=== PATIENT | female | born 1980 | race Caucasian/White ===

== ENCOUNTER 2017-03-10 17:07 | Inpatient (IN) | payer OTHER ==
[2017-03-10] MEDS ORDERED: LR 1,000 ML IV PRN (17:19)
[2017-03-10] MEDS ORDERED: AMPICILLIN SODIUM 2 GM in NS 100 ML IV ONE (17:19)
[2017-03-10] MEDS ORDERED: TERBUTALINE SULFATE 1 MG/ML VIAL IV PRN (17:19)
[2017-03-10] MEDS ORDERED: EPSOM SALT 454 GM TP PRN (17:19)
[2017-03-10] MEDS ORDERED: OXYTOCIN/RINGERS LACTATE 1,000 ML IV PRN (17:19)
[2017-03-10] MEDS ORDERED: OLIVE OIL 118 ML BTL MISC PRN (17:19)
--- NOTE | 2017-03-10 17:23 | OBPROG ---
OBG Labor Progress Note Assessment/Plan: Assessment: leisa q1=3 6/100/-1 cephalic soft mid coping well through the contrctions gbs positive will begin antibiotics cat 1 fhr tub epidural for pin relief when requested Plan:expectant management of labor GBS positive 03/10/17 17:21 Subjective: Doing well. Leisa since 219903/09/2017. denies leaking bleeding. States feling positive movement - SVE Dilation (cm): 6 Effacement (%): 100 Station: -1 - Physical Exam General Appearance: WD/WN, alert, no apparent distress Respiratory: chest non-tender, lungs clear, normal breath sounds Cardiac/Chest: regular rate, rhythm Abdomen: normal bowel sounds Extremities: normal range of motion, Pam's sign (negative homens sign bilaterally) DTR- Lower Extremities: Knee (R): 2+, Knee (L): 2+ (no clonus) Skin: normal color, warm/dry Neuro/Psych: no motor/sensory deficits, alert, normal mood/affect, oriented x 3 ICD10 Worksheet Patient Problems: Problems Problem Status Onset (spontaneous vaginal delivery) Acute
[2017-03-10 17:40] LABS: % IMMATURE GRANULYOCYTES 0.5 % (0.0-1.1); ABSOLUTE IMMATURE GRANULOCYTES 0.04 10^3/uL (0.00-0.10); ADD DIFF? NO; ADD MORPH? NO; ADD SCAN? NO; ATYPICAL LYMPHOCYTE FLAG 0 (0-99); FRAGMENT RBC FLAG 0 (0-99); HEMATOCRIT 35.8 % (38.0-47.0); HEMOGLOBIN 12.5 g/dL (12.6-16.3); LEFT SHIFT FLG 0 (0-99); LIPEMIA HEMOLYSIS FLAG 90 (0-99); MEAN CELL HEMOGLOBIN 32.4 pg (27.9-34.1); MEAN CELL HEMOGLOBIN CONCENTR. 34.9 g/dL (32.4-36.7); MEAN CELL VOLUME 92.7 fL (81.5-99.8); MEAN PLATELET VOLUME 12.5 fL (8.7-11.7); PLATELET CLUMPS FLAG 0 (0-99); PLATELET COUNT 106 10^3/uL (150-400); RED BLOOD CELL COUNT 3.86 10^6/uL (4.18-5.33); RED CELL DISTRIBUTION WIDTH 13.2 % (11.5-15.2)
--- NOTE | 2017-03-10 17:59 | GHP ---
[f rep st] HISTORY AND PHYSICAL DATE OF ADMISSION: 03/10/2017 HISTORY: The patient is a 36-year-old, 2, para 1, with an EDC of 2016. Gestational age 40 and 1/7th weeks. States regular contractions since 2200 on 03/09/2017. Denies leaking, denies bleeding. States feeling positive movement. The patient has been seeing [facility] routinely since 08/03/2016, at 8 and 4/7th weeks. MEDICAL HISTORY: Patient has a history of exercise-induced asthma. GYNECOLOGICAL HISTORY: OCP use for years. Colpo in 2011. Paps have been within normal limits since then. SURGICAL HISTORY: [place] teeth, tonsillectomy, and right arm fracture as a child 4 to 5 years old. SOCIAL HISTORY: Patient is . No drug history, no smoking history. ALLERGIES: Patient is allergic to nuts. No known drug allergies. MEDICATIONS: vitamins. Folic acid. OB HISTORY: In 02/2014, a male who weighed 7 pounds, 15 ounces at 39 and 4/7th weeks, 35 hours of labor, vaginal delivery with an epidural. Previous hemorrhage. FAMILY HISTORY: Noncontributory. PRESENT HISTORY: AMA, Rh negative. LABS: Patient is A-negative. Antibody negative. RPR is nonreactive. Rubella is immune. Hepatitis is negative. HIV is negative. Trio screen on 08/12/2013 was negative. Thyroid was 1.25 on 08/22/2016. 1-hour GTT was within normal limits. Pap, gonorrhea and chlamydia were within normal limits. On 09/28/2016 , AFP was negative. PLAN: 1. GBS positive. Antibiotics will be started. 2. Epidural for pain relief at patient request. 3. Expectant management of labor. 4. Consult Dr. Sameera Gibbs, as needed for plan of care. /[id number]/MODL MTDD
[2017-03-10] MEDS ORDERED: LIDOCAINE 1% 300 MG/30 ML SDV ONE (18:11)
[2017-03-10] MEDS ORDERED: AMMONIA AROMATIC 1 EACH AMP IH ONE (18:12)
[2017-03-10] MEDS ORDERED: OLIVE OIL 118 ML BTL ONE (18:12)
[2017-03-10] MEDS ORDERED: OXYTOCIN 10 UNIT/ML VIAL ONE (18:12)
[2017-03-10] MEDS ORDERED: MISOPROSTOL 200 MCG TAB ONE (18:13)
--- NOTE | 2017-03-10 18:50 | OBPROG ---
OBG Labor Progress Note Assessment/Plan: Assessment: leisa q2-3 8-9/100/-1 cephalic soft mid coping well through the contractions gbs positive will begin antibiotics fisrt dose at 1730 cat 1 fhr changing positions frequently to assist with pain relief Plan:expectant management of labor GBS positive 03/10/17 17:21 03/10/17 18:48 Subjective: l through the pain. Irregularly feeling pressure with the contractions. I feel like I need to have a bm. Objective: 03/10/17 17:30 Patient ABO/Rh A NEGATIVE 03/10/17 17:30 - SVE Dilation (cm): 8 Effacement (%): 100 Station: 0 Oxytocin Orders Assessment - Pre-Induction/Augmentation Assessment Gestational Age: 40 week(s) and 2 day(s) ICD10 Worksheet Patient Problems: Problems Problem Status Onset (spontaneous vaginal delivery) Acute
[2017-03-10] MEDS ORDERED: METHYLERGONOVINE MAL 0.2 MG/ML INJ ONE (19:54)
[2017-03-10] MEDS ORDERED: SIMETHICONE 80 MG TAB CHEW PO PRN (20:11)
[2017-03-10] MEDS ORDERED: ACETAMINOPHEN 325 MG TAB PO PRN (20:11)
[2017-03-10] MEDS ORDERED: HYDROCODONE/APAP 5/325 TAB PO PRN (20:11)
[2017-03-10] MEDS ORDERED: HYDROCORTISONE 0.5% CREAM TP PRN (20:11)
--- NOTE | 2017-03-10 20:15 | OBDEL ---
Info Type: Vaginal GBS+: Yes Antibiotic Used for + GBS: Ampicillin Number of Antibiotic Doses Given: 1 Indications for Delivery: Spontaneous Labor Vaginal Delivery - Labor and Delivery Onset of Contractions Date: 03/09/17 Onset of Contractions Time: 22:00 Onset of Contractions Type: Spontaneous Rupture of Membranes Date: 03/10/17 Rupture of Membranes Time: 19:16 Rupture of Membranes Type: Spontaneous Amniotic Fluid Color: Meconium Stained Dilation Complete Date: 03/10/17 Dilation Complete Time: 19:46 Placenta Delivery Date: 03/10/17 Placenta Delivery Time: 19:52 Total Hours of Labor: 21 Laceration: 2nd Degree Repair: 3-0, Vicryl Vaginal Needle Count Correct: Yes Vaginal Sweep Performed: Yes EBL: 400 Delivery Events: Nuchal Cord - Medications Labor Augmentation/Induction Indication: Other (Specify) (ama) Data Velasquez Delivery Date: 03/10/17 Delivery Time: 19:46 Sex of : Male Score (1 Min): 8 Score (5 Min): 9 ICD10 Worksheet Patient Problems: Problems Problem Status Onset spontaneous term labor Acute (spontaneous vaginal delivery) Acute - ICD10 Problem Qualifiers (2) (spontaneous vaginal delivery)
[2017-03-10] MEDS ORDERED: METHYLERGONOVINE MAL 0.2 MG/ML INJ IM ONE (20:17)
[2017-03-10] MEDS: IBUPROFEN 600 MG TAB PO PRN (21:09)
[2017-03-10] MEDS ORDERED: AMPICILLIN SODIUM 1 GM in NS 100 ML IV SCH (21:20)
[2017-03-10 23:36] VITALS: RESP 16
[2017-03-11] MEDS: IBUPROFEN 600 MG TAB PO PRN ×4 (03:03→22:46)
--- NOTE | 2017-03-11 12:21 | OBPP ---
Progress Note Assessment/Plan: Assessment: 1) s/p PPD # 1 - pt is stable 2) Anemia - pt is asymptomatic 3) Rh negative Plan: Continue routine pp care Will start iron BID Rhogam eval needed Plan for d/c home in am 03/1203/11/17 12:20 Subjective: Pt seen and examined. Doing well, with no complaints. Minimal cramping, cassidy when BF. Relief with Motrin. Moderate lochia. PT is voiding without difficulty, passing flatus. BF is going well. Objective: 03/11/17 05:30 Patient ABO/Rh A NEGATIVE 03/10/17 21:15 Temp Pulse Resp BP Pulse Ox 36.6 C 68 16 99/64 L 96 03/11/17 08:00 03/11/17 08:00 03/11/17 08:00 03/11/17 08:00 03/11/17 08:00 Uterine Position/Fundal Height: Umbilicus -2 Uterine Tone: Firm Physical Exam - Physical Exam General Appearance: WD/WN, alert, no apparent distress Respiratory: lungs clear, normal breath sounds Cardiac/Chest: regular rate, rhythm Abdomen: normal bowel sounds, non-tender, soft, flatus (+) Extremities: non-tender, normal inspection Skin: normal color, warm/dry Neuro/Psych: alert, normal mood/affect, oriented x 3
[2017-03-11] MEDS: IRON POLYSAC/IRON HEME 28 MG TAB PO SCH ×2 (16:42→22:46)
[2017-03-11 20:13] VITALS: O2SAT 94
[2017-03-11] MEDS: DOCUSATE SODIUM 100 MG CAP PO PRN (22:46)
[2017-03-12] MEDS: IBUPROFEN 600 MG TAB PO PRN ×3 (05:29→18:02)
--- NOTE | 2017-03-12 08:02 | OBPP ---
Progress Note Assessment/Plan: Assessment: well pain well managed ff@u scant rubra lochia perineum approximated voiding without difficulty Plan:pp day 1 expectant management 03/10/17 17:21 03/10/17 18:48 03/12/17 07:41 Subjective: Doing well denies difficulties. well. Pain well managed Objective: 03/11/17 05:30 Patient ABO/Rh A NEGATIVE 03/10/17 21:15 Temp Pulse Resp BP Pulse Ox 36.5 C 67 16 117/67 94 03/11/17 20:12 03/11/17 20:12 03/11/17 20:12 03/11/17 20:12 03/11/17 20:12 Uterine Position/Fundal Height: At Umbilicus Uterine Tone: Firm Physical Exam - Physical Exam General Appearance: WD/WN, alert, no apparent distress Respiratory: chest non-tender, lungs clear, normal breath sounds Cardiac/Chest: regular rate, rhythm Abdomen: normal bowel sounds, other (FF@u / scant rubra lochia) Extremities: normal range of motion, Pam's sign (negative bilaterally) DTR- Lower Extremities: Knee (R): 1+, Knee (L): 1+ (no clonus) Skin: normal color, warm/dry Neuro/Psych: no motor/sensory deficits, alert, normal mood/affect, oriented x 3
[2017-03-12 09:55] VITALS: BP 107/66; PULSE 65; TEMP 97.6
[2017-03-12] MEDS: IRON POLYSAC/IRON HEME 28 MG TAB PO SCH (11:36)
[2017-03-12] MEDS: DOCUSATE SODIUM 100 MG CAP PO PRN (11:36)
--- NOTE | 2017-03-12 19:44 | OBGCSDC ---
General Delivery Information - General Info : 2 Para: 2 Delivery Physician/CNM: Tess Vogel Labs: Patient ABO/Rh A NEGATIVE 03/10/17 21:15 Hct 32.1 % (38.0-47.0) L 03/11/17 05:30 Vaginal - Diagnosis Labor: Spontaneous Rupture of Membranes Type: Spontaneous Amniotic Fluid Color: Meconium Stained Laceration: 2nd Degree Repair: 3-0, Vicryl Delivery Events: Nuchal Cord - Operations/Procedures L&D Analgesia/Anesthesia Type: Local - Hospital Course Antepartum: AMA. Intrapartum: Spontaneous labor, srom clear fluid. GBS positive inadequete treatment x 1 dose and quickly delivered. 2nd degree laceration repaired under local. Repaied with 3,o vicryl. 350cc ebl : well. PAin well managed. Perineum approximated - Delivery L&D Analgesia/Anesthesia Type: Local Data Velasquez Delivery Date: 03/10/17 Delivery Time: 19:46 TL: 03/08/17 Gestational Age: 40 week(s) and 4 day(s) Sex of Infant: Male [place] Weight (gm): 3512 g Score (1 Min): 8 Score (5 Min): 9
== END 2017-03-12 22:45 | disposition home or self-care (01) | DRG 775 ==
LOC: OBSVTOIN 17:07 → FLD 17:07 → FOB 21:30 → UNDODISIN 03-12 18:34
PROVIDERS: ADMIT Advanced Practice Midwife; ATTEND Obstetrics & Gynecology
PROC: 10E0XZZ Delivery of Products of Conception, External Approach (ICD-10-PCS; principal; 2017-03-10)
PROC: 0KQM0ZZ Repair Perineum Muscle, Open Approach (ICD-10-PCS; 2017-03-10)
DX: O77.0 Labor and delivery complicated by meconium in amniotic fluid (principal); O99.820 Streptococcus B carrier state complicating pregnancy; O70.1 Second degree perineal laceration during delivery; O90.81 Anemia of the puerperium; O69.9XX0 Labor and delivery complicated by cord complication, unspecified, not applicable or unspecified; O48.0 Post-term pregnancy; Z3A.40 40 weeks gestation of pregnancy; Z37.0 Single live birth
CPT/HCPCS: J0290; J2210; J2590